=== PATIENT | male | born 1970 | race Hispanic/Latino ===

== ENCOUNTER 2018-02-17 19:59 | Emergency (ER) | payer OTHER ==
[2018-02-17 20:06] VITALS: BP 143/76; PULSE 76; RESP 16; TEMP 98.7; O2SAT 96
[2018-02-17] MEDS ORDERED: Naproxen 500 MG TAB PO STA (20:19)
--- NOTE | 2018-02-17 21:09 | ED PDOC ---
Upper Extremity Pain/Injury Time Seen by Provider: 02/17/18 20:09 Chief Complaint (Nursing): Upper Extremity Problem/Injury Chief Complaint (Provider): Right elbow injury History Per: Patient History/Exam Limitations: no limitations Current Symptoms Are (Timing): Still Present Additional Complaint(s): 47 year old male presents to the ED complaining of right elbow injury and feels a sharp shooting pain with a tingling sensation to the right forearm radiating to the right 4th and 5th fingers. Patient denies swelling, decreased ROM, or injury. PMD: none Past Medical History Reviewed: Historical Data, Nursing Documentation, Vital Signs Vital Signs: Last Vital Signs Temp 98.7 F 02/17/18 20:03 Pulse 76 02/17/18 20:03 Resp 16 02/17/18 20:03 BP 143/76 02/17/18 20:03 Pulse Ox 96 02/17/18 20:03 - Medical History PMH: HTN - Surgical History Surgical History: No Surg Hx - Family History Family History: States: Unknown Family Hx - Social History Alcohol: Social Drugs: Denies - Allergies Allergies/Adverse Reactions: Allergies Allergy/AdvReac Type Severity Reaction Status Date / Time No Known Allergies Allergy Verified 02/17/18 20:03 Review of Systems ROS Statement: Except As Marked, All Systems Reviewed And Found Negative Musculoskeletal: Positive for: Other (Right elbow pain with no swelling or decreased ROM) Physical Exam - Reviewed Nursing Documentation Reviewed: Yes Vital Signs Reviewed: Yes - Physical Exam Comments: GENERAL APPEARANCE: Patient is awake, alert, oriented x 3, in no acute distress. SKIN: Warm, dry; (-) cyanosis. RIGHT UE: (+) Superficial abrasions to the right forearm, (-) tenderness, (-) edema, (-) ecchymosis, (-) deformity. Full ROM. Sensation intact. Normal capillary refill and 2+ distal pulses. NEURO AND PSYCH: Mental status as above. - ECG O2 Sat by Pulse Oximetry: 96 (RA) Pulse Ox Interpretation: Normal Medical Decision Making Medical Decision Making: Initial Impression: Right elbow injury Initial Plan: Naproxen 500mg PO Elbow X-ray Forearm X-ray XR R elbow / forearm : no fracture, no dislocation, as read by PA. X-ray results discussed with the patient in great detail. Sling applied. Neurovascular intact post splint application. Patient instructed to follow-up with pmd or orthopedic referral provided in 1-2 days without fail. Advised to take otc nsaids prn for pain. Rest, ice and elevate the joint. Return to the emergency room at any time for any new or worsening symptoms. Patient states he fully agrees with and understands discharge instructions. States that he agrees with the plan and disposition. Verbalized and repeated discharge instructions and plan. I have given the patient opportunity to ask any additional questions. Scribe Attestation: Documented by Delano Medina acting as a scribe for Genny CUMMINGS. Provider Scribe Attestation: All medical record entries made by the Scribe were at my direction and personally dictated by me. I have reviewed the chart and agree that the record accurately reflects my personal performance of the history, physical exam, medical decision making, and the department course for this patient. I have also personally directed, reviewed, and agree with the discharge instructions and disposition. Disposition - Clinical Impression Clinical Impression: Contusion of right elbow - Patient ED Disposition Is Patient to be Admitted: No Counseled Patient/Family Regarding: Studies Performed, Diagnosis, Need For Followup - Disposition Referrals: Lisseth Torrez MD [Staff Provider] - Disposition: Routine/Home Disposition Time: 21:00 Condition: STABLE Additional Instructions: Thank you for letting us take care of you today. You were treated for right elbow contusion. The emergency medical care you received today was directed at your acute symptoms. Rest, ice, wear sling for comfort. It may take several days for your symptoms to resolve. Return to the Emergency Department if your symptoms worsen, do not improve, or if you have any other problems. Please contact your doctor in 2 days for re-evaluation and follow up / or call one of the physicians/clinics you have been referred to that are listed on the Patient Visit Information form that is included in your discharge packet. Bring any paperwork you were given at discharge with you along with any medications you are taking to your follow up visit. Our treatment cannot replace ongoing medical care by a primary care provider (PCP) outside of the emergency department. Thank you for allowing the [facility] team to be part of your care today. If you had an X-Ray : A Radiologist will review the ED reading if any change in treatment is needed we will contact you. Instructions: Contusion (DC) Forms: [employer] (C[place]), [facility] ED School/Work Excuse - PA / FINANCIAL SERVICES PROFESSIONAL / Resident Statement MD/DO has reviewed & agrees with the documentation as recorded.
--- NOTE | 2018-02-18 08:15 | RAD ---
PROCEDURE: Right elbow Radiographs. HISTORY: pain COMPARISON: None. FINDINGS: BONES: Normal. No fracture. JOINTS: Normal. No dislocation. SOFT TISSUES: Normal. OTHER FINDINGS: None. IMPRESSION: No fracture
--- NOTE | 2018-02-18 08:16 | RAD ---
Right forearm History: Pain after fall. Technique: Two views of the right forearm. Findings: No acute fracture or dislocation. Unremarkable soft tissues. Impression: No acute fracture.
== END 2018-02-17 21:21 | disposition home or self-care (01) ==
LOC: H.ER 19:59
DX: S50.01XA Contusion of right elbow, initial encounter (principal); Y92.89 Other specified places as the place of occurrence of the external cause; I10 Essential (primary) hypertension